=== PATIENT | female | born 1995 | race Caucasian/White ===

== ENCOUNTER 2016-12-16 03:29 | Emergency (ER) | payer OTHER ==
[~2016-12-16] VITALS: Ht 157.5 cm; Wt 60.5 kg
[~2016-12-16 03:29] MED LIST: HYDR-762 PO; IBUP800T25 PO; ONDA4TAB35 PO
[2016-12-16 03:42] VITALS: Ht 157.5 cm; Wt 60.5 kg
[2016-12-16 04:05] LABS: URINE BLOOD (Dip) POC Negative (NEGATIVE)
[2016-12-16] MEDS ORDERED: ONDANSETRON 4 MG INJ IV STA (04:13)
[2016-12-16] MEDS ORDERED: morphine 4 MG/ML VIAL IV STA (04:13)
[2016-12-16 04:26] LABS: BASOPHIL # 0.1 10^3/ul (0.0-0.1); BASOPHILS % 0.7 % (0.0-2.0); EOSINOPHILS # 0.2 10^3/ul (0.0-0.5); EOSINOPHILS % 1.6 % (0.0-7.0); HEMATOCRIT 40.7 % (37.0-47.0); HEMOGLOBIN 13.7 g/dl (12.0-16.0); LYMPHOCYTES # 4.8 10^3/ul (0.8-2.9); LYMPHOCYTES % 40.5 % (15.0-51.0); MEAN CORPUSCULAR HGB CONC 33.7 g/dl (32.0-37.0); MEAN CORPUSCULAR VOLUME 92.1 fl (82.0-101.0); MEAN PLATELET VOLUME 9.6 fl (7.4-10.4); MONOCYTE # 0.7 10^3/ul (0.3-0.9); MONOCYTES % 5.7 % (0.0-11.0); NEUTROPHIL # 6.1 10^3/ul (1.6-7.5); NEUTROPHILS % 51.2 % (39.0-77.0); PLATELET COUNT 306 10^3/UL (140-415); RED BLOOD COUNT 4.42 10^6/ul (4.20-5.40); RED CELL DISTRIBUTION WIDTH 11.9 % (11.5-14.5); WHITE BLOOD COUNT 11.8 10^3/ul (4.8-10.8)
[2016-12-16] MEDS ORDERED: SOD CHLORIDE 0.9% 1,000 ML IV STA (04:30)
[2016-12-16 04:36] LABS: ADD UMIC NO; UR ASCORBIC ACID NEGATIVE (NEGATIVE); UR BILIRUBIN (Dip) NEGATIVE (NEGATIVE); UR BLOOD (Dip) NEGATIVE (NEGATIVE); UR CLARITY CLEAR (CLEAR); UR COLOR YELLOW (YELLOW); UR GLUCOSE (Dip) NEGATIVE (NEGATIVE); UR KETONES (Dip) NEGATIVE (NEGATIVE); UR LEUKOCYTE ESTERASE (Dip) NEGATIVE Leu/ul (NEGATIVE); UR NITRITE (Dip) NEGATIVE (NEGATIVE); UR SPECIFIC GRAVITY (Dip) 1.013 (1.003-1.030); UR TOTAL PROTEIN (Dip) NEGATIVE (NEGATIVE); UR UROBILINOGEN (Dip) NEGATIVE (NEGATIVE)
[2016-12-16 04:48] LABS: ALBUMIN 4.5 g/dl (3.3-4.9); ALBUMIN/GLOBULIN RATIO 1.6; BILIRUBIN,INDIRECT 0.5 mg/dl (0-1.1); BILIRUBIN,TOTAL 0.5 mg/dl (0.2-1.3); CALCIUM 9.2 mg/dl (8.4-10.2); CREATININE 0.7 mg/dl (0.44-1.00); POTASSIUM 3.5 mmol/L (3.5-5.1); TOTAL PROTEIN 7.3 g/dl (6.1-8.1)
--- NOTE | 2016-12-16 04:59 | RADRPT ---
PROCEDURE: CT abdomen and pelvis without intravenous contrast. CLINICAL INDICATION: Right flank pain. TECHNIQUE: CT of the abdomen/pelvis was performed utilizing axial images with reconstructions in s agittal and coronal planes. The administered radiation dose is CTDI 6.5 mGy, DLP 349 mGy-cm. COMPARISON: No pertinent prior examinations were submitted for comparison. FINDINGS: Visualized Chest: The visualized lung bases are clear. Abdomen: The liver, spleen, pancreas, gallbladder,and adrenal glands are unremarkable. The kidneys are without hydronephrosis. No definite urinary calculi are seen. There is no evidence of bowel obstruction. The appendix is not seen. There is no evidence of acute appendicitis. No intra-abdominal free air is seen. There is no evidence of intra-abdominal adenopathy or free fluid. Pelvis: An IUD is noted within the uterus in the lower uterine segment. The uterus and ovaries are without enlargement. The urinary bladder is unremarkable. There is no pelvic adenopathy or free fluid. Osseous structures: Unremarkable. IMPRESSION: No acute findings. No obstructive uropathy. RPTAT: HIKT .Marquis Frias MD, MD Date Time Electronically viewed and signed by .Marquis Frias MD, MD on 12/16/2016 04:59 .T/
--- NOTE | 2016-12-16 05:04 | ERD ---
ER Documentation Chief Complaint Date/Time DATE: 12/16/16 TIME: 05:02 Chief Complaint right lower abd pain radiating to right lower back HPI This is a 21-year-old female who presents to the emergency room for evaluation of abdominal pain. The patient localizes the abdominal pain to the right lower portion of her abdomen and does state that radiates to her right flank. She does state that she has some associated blood in her stool and that this is been present for over 1 weeks duration. She does state that she has a family history of Crohn's disease and is scheduled to see a specialist in the upcoming week. She denies any aggravating or relieving factors for her pain in the states that she is not at this time. ROS All systems reviewed and are negative except as per history of present illness. Medications Home Meds Active Scripts Ibuprofen* (Motrin*) 800 Mg Tab, 800 MG PO Q6H Y for PAIN, #30 TAB Prov:RAUL MCQUEEN MD 11/03/14 Ondansetron Hcl* (Zofran* ODT) 4 mg -ODT Tab.disper, 4 MG PO Q6 Y for NAUSEA AND /OR VOMITING, #10 TAB Prov:RAUL MCQUEEN MD 11/03/14 Hydrocodone Bit-Acetaminophen* ([place]*) 10-325 Mg Tablet, 1 TAB PO Q6 Y for PAIN , #7 TAB Prov:RAUL MCQUEEN MD 11/03/14 Allergies Allergies: Coded Allergies: No Known Allergy (Unverified , 11/03/14) PMhx/Soc History of Surgery: Yes (APPENDICITIS ) Anesthesia Reaction: No Hx Neurological Disorder: No Hx Respiratory Disorders: No Hx Cardiac Disorders: No Hx Psychiatric Problems: No Hx Miscellaneous Medical Probl: Yes (ovarian cyst) Hx Alcohol Use: No Hx Substance Use: No Hx Tobacco Use: Yes Smoking Status: Current every day smoker Physical Exam Vitals Vital Signs Date Time Temp Pulse Resp B/P Pulse Ox O2 Delivery O2 Flow Rate FiO2 12/16/16 03:42 97.4 78 18 119/62 100 Physical Exam INITIAL VITAL SIGNS: Reviewed by me GENERAL: The patient is well developed and appropriate for usual state of health in no apparent distress HEENT: Pupils equal, round, and reactive to light. EOMI. There is no scleral icterus. NECK: C-spine is soft and supple, there is no meningismus. There is no cervical lymphadenopathy. LUNGS: Clear to auscultation bilaterally. There are no rales, wheezes or rhonchi. HEART: Regular rate and rhythm, no murmurs, clicks, rubs or gallops. ABDOMEN: Right-sided CVAT, mild suprapubic tenderness to palpation, otherwise soft, non-tender, non-distended. There are bowel sounds in all four quadrants. No rebound or guarding. EXTREMITIES: There is no peripheral cyanosis or edema. No focal swelling or erythema. NEUROLOGICAL: The patient moves all four extremities with 5/5 strength. Cranial nerves II - XII are intact. Normal gait. Alert and oriented SKIN: There is no apparent rash or petechiae. HEME/LYMPHATIC: There is no evidence of excessive bruising or lymphedema. PSYCHIATRIC: The patient does not appear anxious or depressed. Result Diagram: 12/16/16 0408 12/16/16 0408 Results 24 hrs Laboratory Tests Test 12/16/16 04:00 12/16/16 04:08 12/16/16 04:10 Urine Color YELLOW Urine Clarity CLEAR Urine pH 7.0 Urine Specific [place] 1.013 Urine Ketones NEGATIVEmg/dL Urine Nitrite NEGATIVEmg/dL Urine Bilirubin NEGATIVEmg/dL Urine Urobilinogen NEGATIVEmg/dL Urine Leukocyte Esterase NEGATIVELeu/ul Urine Hemoglobin NEGATIVEmg/dL Urine Glucose NEGATIVEmg/dL Urine Total Protein NEGATIVEmg/dl Urine Test NEGATIVE White Blood Count 11.810^3/ul Red Blood Count 4.4210^6/ul Hemoglobin 13.7g/dl Hematocrit 40.7% Mean Corpuscular Volume 92.1fl Mean Corpuscular Hemoglobin 31.0pg Mean Corpuscular Hemoglobin Concent 33.7g/dl Red Cell Distribution Width 11.9% Platelet Count 93950^3/UL Mean Platelet Volume 9.6fl Neutrophils % 51.2% Lymphocytes % 40.5% Monocytes % 5.7% Eosinophils % 1.6% Basophils % 0.7% Nucleated Red Blood Cells % 0.0/100WBC Neutrophils # 6.110^3/ul Lymphocytes # 4.810^3/ul Monocytes # 0.710^3/ul Eosinophils # 0.210^3/ul Basophils # 0.110^3/ul Nucleated Red Blood Cells # 0.010^3/ul Sodium Level 140mmol/L Potassium Level 3.5mmol/L Chloride Level 104mmol/L Carbon Dioxide Level 26mmol/L Anion Gap 14 Blood Urea Nitrogen 11mg/dl Creatinine 0.70mg/dl Glucose Level 96mg/dl Calcium Level 9.2mg/dl Total Bilirubin 0.5mg/dl Direct Bilirubin 0.00mg/dl Indirect Bilirubin 0.5mg/dl Aspartate Amino Transf (AST/SGOT) 23IU/L Alanine Aminotransferase (ALT/SGPT) 27IU/L Alkaline Phosphatase 72IU/L Total Protein 7.3g/dl Albumin 4.5g/dl Globulin 2.80g/dl Albumin/Globulin Ratio 1.60 Lipase 56U/L Bedside Urine pH (LAB) 7.0 Bedside Urine Protein (LAB) Negative Bedside Urine Glucose (UA) Negative Bedside Urine Ketones (LAB) Negative Bedside Urine Blood Negative Bedside Urine Nitrite (LAB) Negative Bedside Urine Leukocyte Esterase (L Negative Current Medications Medications (Trade) Dose Ordered Sig/Mckayla Route PRN Reason Start Time Stop Time Status Last Admin Dose Admin Morphine Sulfate (morphine) 4 mg ONCE STAT IV 12/16/16 04:13 12/16/16 04:14 DC 12/16/16 04:26 Ondansetron HCl 4 mg 4 mg ONCE STAT IV 12/16/16 04:13 12/16/16 04:14 DC 12/16/16 04:26 Sodium Chloride (NS) 1,000 ml @ 1,000 mls/hr Q1H STAT IV 12/16/16 04:30 12/16/16 05:29 12/16/16 04:54 Procedures/MDM CT abdomen pelvis without: No acute findings. No obstructive uropathy. This 21-year-old female presents to the ER for evaluation of abdominal pain. When I evaluated her she did have minor tenderness to palpation on the right flank. The patient did have a previous history of appendicitis with removal of her appendix. She was nontoxic-appearing and hemodynamically stable however she did appear to be in mild distress secondary to pain. The patient had lab work drawn and was given morphine for pain in the emergency room. Lab work is within normal limits. CT of the abdomen and pelvis does not demonstrate any bowel wall thickening, no obstruction, and is within normal limits. When I reevaluated this patient to speak to her about her lab results and CAT scan finding she does state that she is feeling better at this time. I encouraged her to keep her appointment with her specialist and the patient will be discharged at this time. Differential diagnoses entertained was broad with potential high acuity. Patient has been evaluated for appendicitis, cholecystitis, and other high risk medical and surgical causes of abdominal pain. Ultimately the patient's evaluation is nondiagnostic. Based on the patient's lack of risk factors, as well as the patient's clinical, laboratory, and imaging data, the patient appears to be low risk for these high risk causes of abdominal pain. Departure Diagnosis: Primary Impression: Abdominal pain Additional Impression: Rectal bleeding Condition: Stable FEROZ ARIAS DO Dec 16, 2016 05:04
== END 2016-12-16 06:36 | disposition home or self-care (01) ==
LOC: E/R 03:29
DX: R10.31 Right lower quadrant pain (principal); K62.5 Hemorrhage of anus and rectum; F17.210 Nicotine dependence, cigarettes, uncomplicated
CPT/HCPCS: 36415; 74176; 80053; 81003; 83690; 84703; 85025; 96374; 96375; J2270; J2405; J7030; Z7502

== ENCOUNTER 2018-04-08 03:27 | Emergency (ER) | END 2018-04-08 05:15 | disposition home or self-care (01) ==